=== PATIENT | male | born 1965 | race African-American/Black ===

== ENCOUNTER 2022-08-30 19:51 | Emergency (ER) | payer MEDICAID, OTHER ==
[~2022-08-30] VITALS: Ht 170.2 cm; Wt 75.0 kg
[2022-08-30 20:04] VITALS: BP 141/89
[2022-08-30] MEDS ORDERED: SODIUM CHLORIDE 0.9% 500 ML IV ONE (20:30)
[2022-08-31] MEDS ORDERED: TRAM50TA2 PO (17:40)
[2022-08-31] MEDS ORDERED: DICL50TA2 PO (17:40)
== END 2022-08-30 21:57 | disposition left against medical advice (07) ==
LOC: EDBD 19:51 → ER 19:53
DX: R10.31 Right lower quadrant pain (principal); K59.00 Constipation, unspecified
CPT/HCPCS: 74176; 76870

== ENCOUNTER 2022-08-31 07:35 | Emergency (ER) | payer MEDICAID ==
[~2022-08-31] VITALS: Ht 172.7 cm; Wt 72.6 kg
[2022-08-31 11:10] LABS: Urine Bacteria FEW /hpf (None Seen); Urine Blood Negative /uL (Negative); Urine Mucus FEW (None Seen); Urine WBC 2 /hpf (0 - 3)
[2022-08-31] MEDS ORDERED: SODIUM CHLORIDE 0.9% 1,000 ML IV ONE (14:15)
[2022-08-31 14:31] LABS: Basophils # (auto) 0.1 10 ^3/uL (0-0.2); Basophils % (auto) 1.1 % (0.0-2.0); Eosinophils # (auto) 0.5 10 ^3/uL (0-0.8); Eosinophils % (auto) 8.1 % (0.0-7.0); Hematocrit 43.5 % (41.0-53.0); Hemoglobin 14.5 g/dL (13.5-17.5); Lymphocytes % (auto) 52.8 % (10.0-50.0); Mean Corpuscular Hemoglobin 31.4 pg (28.0-32.0); Mean Corpuscular Hgb Conc. 33.5 g/dL (32.0-36.0); Monocytes # (auto) 0.4 10 ^3/uL (0-1.3); Monocytes % (auto) 6.6 % (0.0-12.0); Neutrophils # (auto) 1.8 10 ^3/uL (1.6-8.6); Neutrophils % (auto) 31.4 % (37.0-80.0); Nucleated Red Blood Cells % 0.1 %; Red Blood Cells 4.62 10^6/uL (4.5-5.90); Red Cell Distribution Width 13.8 % (11.8-14.3); White Blood Cell 5.8 10^3/uL (4.4-10.8)
[2022-08-31 14:43] LABS: Albumin 3.6 g/dL (3.4-5.0); Calcium 8.8 mg/dL (8.5-10.1); Magnesium 2.1 mg/dL (1.6-2.6); Potassium 4.5 mmol/L (3.5-5.1)
[2022-08-31 14:46] LABS: BUN/Creatinine Ratio 10.9; Bilirubin, Total 0.3 mg/dL (0.2-1.0); Total Protein 7.5 g/dL (6.4-8.2)
[2022-08-31] MEDS ORDERED: DICL50TA2 PO (17:40)
[2022-08-31] MEDS ORDERED: TRAM50TA2 PO (17:40)
[2022-08-31 18:36] VITALS: BP 127/67
== END 2022-08-31 18:39 | disposition home or self-care (01) ==
LOC: ER 07:35
DX: N50.82 Scrotal pain (principal); I10 Essential (primary) hypertension; F17.210 Nicotine dependence, cigarettes, uncomplicated; F12.10 Cannabis abuse, uncomplicated; F15.10 Other stimulant abuse, uncomplicated; Z59.00 Homelessness unspecified
CPT/HCPCS: 36415; 71046; 74177; 80053; 81001; 83690; 83735; 85025; 96360; 96361; 99285; J7030